=== PATIENT | male | born 1940 | race Caucasian/White ===

== ENCOUNTER 2023-10-14 12:30 | Emergency (ER) | payer OTHER, MEDICARE ==
[~2023-10-14] VITALS: Ht 180.3 cm; Wt 77.8 kg
[2023-10-14] MEDS ORDERED: BENZONATATE 100MG CAPSULE PO ONE (17:10)
[2023-10-14 17:47] LABS: VENOUS BASE EXCESS 0.1 (-2.0-2.0); VENOUS HCO3 25.3 MMOL/L (23.0-27.0); VENOUS O2 SATURATION 59.8 % (60.0-80.0); VENOUS PARTIAL PRESSURE CO2 43.2 mmHg (38.0-50.0); VENOUS PARTIAL PRESSURE O2 31.8 mmHg (30.0-50.0); VENOUS PH 7.385 UNITS (7.330-7.430); VENOUS STANDARD HCO3 23.7 MMOL/L; VENOUS TOTAL CO2 26.6 MMOL/L (24.0-28.0)
[2023-10-14 17:52] LABS: BASO % 0.3 % (0.0-1.0); EOS # 0.1 10^3/uL (0.0-0.5); EOS % 0.5 % (0.0-3.0); HEMATOCRIT 35.4 % (42.0-52.0); HEMOGLOBIN 11.9 g/dl (13.5-17.5); LYMPH # 0.5 10^3/uL (1.5-5.0); LYMPH % 4.6 % (24.0-44.0); MEAN CORPUSCULAR HEMOGLOBIN 31.7 pg (27.0-33.0); MEAN CORPUSCULAR HGB CONC 33.6 g/dl (32.0-36.5); MEAN CORPUSCULAR VOLUME 94.4 fl (80.0-96.0); MONO # 1.1 10^3/uL (0.0-0.8); MONO % 11.3 % (2.0-8.0); NEUTROPHILS % 81.6 % (36.0-66.0); PLATELET COUNT, AUTOMATED 324 10^3/uL (150-450); RED BLOOD COUNT 3.75 10^6/uL (4.30-6.10); WHITE BLOOD COUNT 9.9 10^3/uL (4.0-10.0)
[2023-10-14 18:10] LABS: INR 2.8; PROTHROMBIN TIME 28.5 SECONDS (12.5-14.5)
[2023-10-14 18:15] LABS: ALBUMIN 2.6 G/DL (3.2-5.2); BILIRUBIN,DIRECT 0.3 MG/DL (<0.4); BILIRUBIN,TOTAL 0.6 MG/DL (0.3-1.2); MB/CK RELATIVE INDEX 1.38 (< OR =4); TOTAL PROTEIN 6.4 G/DL (5.7-8.2)
[2023-10-14 18:17] LABS: THYROXINE (T4) 6.7 UG/DL (4.5-10.9)
[2023-10-14 18:18] LABS: THYROID STIMULATING HORMONE 6.381 uIU/ML (0.55-4.78)
[2023-10-14] MEDS: methylPREDNISolone 125MG 2ML VIAL IV ONE (19:24)
[2023-10-14] MEDS: diphenhydrAMINE 50MG/ML VIAL IV STA (19:24)
[2023-10-14] MEDS ORDERED: ISOVUE-370 76% 100ML VIAL As Ordered ONE (19:38)
[2023-10-14] MEDS: ACETAMINOPHEN 325 MG TAB PO ONE (20:55)
[2023-10-14] MEDS: NORCO 5/325MG TABLET (HOME DOSE PACK) PO ONE (21:20)
[2023-10-14 21:50] VITALS: BP 136/85; TEMP 100.9; O2SAT 96
== END 2023-10-14 22:15 | disposition home or self-care (01) ==
LOC: M ED 12:30
DX: U07.1 COVID-19 (principal); J45.909 Unspecified asthma, uncomplicated; E78.5 Hyperlipidemia, unspecified; I10 Essential (primary) hypertension; Z88.0 Allergy status to penicillin; Z88.6 Allergy status to analgesic agent; Z88.8 Allergy status to other drugs, medicaments and biological substances; Z91.048 Other nonmedicinal substance allergy status
CPT/HCPCS: 71045; 71275; 80047; 80076; 82550; 82553; 82803; 83605; 83880; 84436; 84443; 84484; 85025; 85610; 87040; 87486; 87581; 87633; 87798; 93005; 93041; 94760; 96374; 99285; J1200; J2930; Q9967